=== PATIENT | female | born 1965 | race Caucasian/White ===

== ENCOUNTER 2021-10-10 12:12 | Outpatient (CLI) | payer OTHER | END 2021-10-10 12:13 | disposition home or self-care (01) | LOC: BICMAMMO 12:12 | PROVIDERS: ATTEND Obstetrics & Gynecology | DX: Z12.31 Encounter for screening mammogram for malignant neoplasm of breast (principal); Z80.3 Family history of malignant neoplasm of breast | CPT/HCPCS: 77063; 77067 ==

== ENCOUNTER 2024-04-14 14:03 | Outpatient (CLI) | payer OTHER | END 2024-04-14 14:04 | disposition home or self-care (01) | LOC: BICMAMMO 14:03 | PROVIDERS: ATTEND Obstetrics & Gynecology | DX: N63.23 Unspecified lump in the left breast, lower outer quadrant (principal) | CPT/HCPCS: G0279 ==